=== PATIENT | male | born 1985 | race Hispanic/Latino ===

== ENCOUNTER 2020-06-21 01:57 | Emergency (ER) | payer SELFPAY ==
[2020-06-21] MEDS ORDERED: MAGNES/ALUMIN/SIMET 30ML UCUP ONE (04:31)
[2020-06-21 04:32] LABS: Absolute Lymphocytes (CBC) 2.3 K/uL (0.7-4.9); Basophils % 0.6 % (0-1.3); Hematocrit 42.4 % (39.6-49.0); Lymphocytes % 28.9 % (15.3-44.8)
[2020-06-21] MEDS ORDERED: LIDOCAINE VISCOUS 2% SOLN 15 ML UDC ONE (04:32)
[2020-06-21 04:51] LABS: Protime INR 1.04
[2020-06-21 04:55] LABS: ALT/SGPT 34 U/L (12-78); AST/SGOT 16 U/L (15-37); Albumin 3.6 g/dL (3.4-5.0); Alkaline Phosphatase 77 U/L (45-117); BUN Blood Urea Nitrogen 15 mg/dL (7-18); Bicarbonate 28 mmol/L (21-32); Bilirubin Direct < 0.1 mg/dL (0-0.2); Bilirubin Total 0.3 mg/dL (0.2-1.0); Glucose Level 90 mg/dL (74-106); Magnesium 2.2 mg/dL (1.8-2.4); NT PRO-BNP 19 pg/mL (<125); Potassium 3.6 mmol/L (3.5-5.1); Protein, Total 7.7 g/dL (6.4-8.2); Sodium Level 140 mmol/L (136-145); Troponin (Emerg Dept Use Only) < 0.02 ng/mL (0.0-0.045)
--- NOTE | 2020-06-21 05:29 | ER ---
Nurse's Notes [facility] Name: Ayo Hunt Age: 34 yrs Sex: Male : 1985 Arrival Date: 06/21/2020 Time: 01:58 Bed 15 Private MD: Diagnosis: Chest pain, unspecified;Gastro-esophageal reflux disease Presentation: 06/21 02:33 Chief complaint: Patient states: he started having chest pain around 1500 today he was bb working at home but the pain wouldn't go away so he got worried. Coronavirus screen: At this time, the client does not indicate any symptoms associated with coronavirus-19. Ebola Screen: No symptoms or risks identified at this time. Initial Sepsis Screen: Does the patient meet any 2 criteria? No. Patient's initial sepsis screen is negative. Does the patient have a suspected source of infection? No. Patient's initial sepsis screen is negative. Risk Assessment: Do you want to hurt yourself or someone else? Patient reports no desire to harm self or others. Onset of symptoms was June 20, 2020. 02:33 Method Of Arrival: Ambulatory bb 02:33 Acuity: TAMIKO 3 bb Triage Assessment: 02:37 General: Appears in no apparent distress. uncomfortable, obese, Behavior is bb cooperative, anxious. Pain: Complains of pain in chest Pain currently is 9 out of 10 on a pain scale. Neuro: Level of Consciousness is awake, alert, obeys commands, Oriented to person, place, time, situation. Cardiovascular: Reports chest pain, Capillary refill < 3 seconds Patient's skin is warm and dry. Rhythm is sinus rhythm. Respiratory: Respiratory effort is even, unlabored, Respiratory pattern is regular. GI: Reports nausea. Derm: Skin is dry, Skin is normal, Skin temperature is warm. Musculoskeletal: Circulation, motion, and sensation intact. Historical: - Allergies: 02:37 No Known Allergies; bb - Home Meds: 02:37 losartan oral oral [Active]; Aspirin Oral [Active]; bb - PMHx: 02:37 Hypertension; bb - PSHx: 02:37 abdominal surgery; bb - Immunization history:: Adult Immunizations up to date. - Social history:: Smoking status: Patient denies any tobacco usage or history of. - Family history:: not pertinent. - Hospitalizations: : No recent hospitalization is reported. Screenin:19 Abuse screen: Denies threats or abuse. Nutritional screening: No deficits noted. ea Tuberculosis screening: No symptoms or risk factors identified. Fall Risk None identified. Assessment: 04:00 General: Appears in no apparent distress. Behavior is calm, cooperative, appropriate ea for age. Pain: Complains of pain in chest Pain does not radiate. Neuro: Level of Consciousness is awake, alert, obeys commands, Oriented to person, place, time. Cardiovascular: Patient's skin is warm and dry. Respiratory: Airway is patent Respiratory effort is even, unlabored, Respiratory pattern is regular, symmetrical. Derm: Skin is pink, warm \T\ dry. 05:52 Reassessment: Patient and/or family updated on plan of care and expected duration. Pain ea level reassessed. Patient is alert, oriented x 3, equal unlabored respirations, skin warm/dry/pink. Discharge instruction given to patient verbalized the understanding of instruction. Pt left ED ambulatory tolerating well. Vital Signs: 02:33 BP 119 / 63; Pulse 77; Resp 18 S; Temp 98.4(O); Pulse Ox 99% on R/A; Weight 181.44 kg bb (R); Height 5 ft. 7 in. (170.18 cm) (R); Pain 9/10; 04:30 BP 123 / 74; Pulse 76; Resp 18; Pulse Ox 95% ; ea 05:45 BP 104 / 58; Pulse 70; Resp 18; Pulse Ox 97% ; ea 02:33 Body Mass Index 62.65 (181.44 kg, 170.18 cm) bb ED Course: 01:58 Patient arrived in ED. bp1 02:35 Triage completed. bb 02:37 Arm band placed on Patient placed in waiting room, Patient notified of wait time. EKG bb completed in triage. Results shown to MD. 03:20 Patient has correct armband on for positive identification. Bed in low position. Call ea light in reach. Side rails up X2. 03:43 Nelida Mattson, AURELIANO is Primary Nurse. ea 03:53 Nilesh Andersen MD is Attending Physician. rn 04:19 Pulse ox on. NIBP on. ea 04:20 XRAY Chest (1 view) In Process Unspecified. EDMS 05:52 No provider procedures requiring assistance completed. IV discontinued, intact, ea bleeding controlled, No redness/swelling at site. Pressure dressing applied. Administered Medications: 04:25 Drug: GI Cocktail without - (Maalox Suspension 30 ml, Lidocaine Liquid 2 % 15 ea ml) Route: PO; Outcome: 05:27 Discharge ordered by . rn 05:53 Discharged to home ambulatory, with family. taina 05:53 Condition: stable 05:53 Discharge instructions given to patient, Instructed on discharge instructions, follow up and referral plans. Demonstrated understanding of instructions, follow-up care. 05:53 Patient left the ED. ea Signatures: Dispatcher [employer] EDMS Katherine Mccall RN RN Nilesh Torres MD MD rn Antunez, Elena RN Sophia Aguilar ea
--- NOTE | 2020-06-21 05:29 | EDPHYS ---
Physician Documentation [facility] Name: Ayo Hunt Age: 34 yrs Sex: Male : 1985 Arrival Date: 06/21/2020 Time: 01:58 Bed 15 Private MD: ED Physician Nilesh Andersen HPI: 06/21 04:02 This 34 yrs old Male presents to ER via Ambulatory with complaints of Chest rn Pain. 04:02 The patient or guardian reports chest pain that is located primarily in the substernal rn area. The pain does not radiate. Associated signs and symptoms: Pertinent positives: shortness of breath, Pertinent negatives: cough, headache, lower extremity pain, lower extremity swelling, palpitations. The chest pain is described as burning, dull. Duration: The patient or guardian reports a single episode, that is now resolved. Modifying factors: The symptoms are alleviated by nothing. the symptoms are aggravated by nothing. Severity of pain: At its worst the pain was moderate in the emergency department the pain has resolved. The patient has experienced similar episodes in the past. Reports chest pain and sob that began late last night, had a bowl of cereal late, then woke up mother that his chest was hurting, states similar to gastritis pain in past, and resolved prior to my evaluation. Takes BP meds and acid medication. Currently sleeping and asymptomatic. . Historical: - Allergies: 02:37 No Known Allergies; bb - Home Meds: 02:37 losartan oral oral [Active]; Aspirin Oral [Active]; bb - PMHx: 02:37 Hypertension; bb - PSHx: 02:37 abdominal surgery; bb - Immunization history:: Adult Immunizations up to date. - Social history:: Smoking status: Patient denies any tobacco usage or history of. - Family history:: not pertinent. - Hospitalizations: : No recent hospitalization is reported. ROS: 04:02 Constitutional: Negative for fever, chills, and weight loss, Eyes: Negative for injury, rn pain, redness, and discharge, Neck: Negative for injury, pain, and swelling, Cardiovascular: Negative for palpitations, and edema, Respiratory: Negative for shortness of breath, cough, wheezing, and pleuritic chest pain, Abdomen/GI: Negative for nausea, vomiting, diarrhea, and constipation, Back: Negative for injury and pain, MS/Extremity: Negative for injury and deformity, Skin: Negative for injury, rash, and discoloration, Neuro: Negative for headache, weakness, numbness, tingling, and seizure. Exam: 04:02 Constitutional: Obese male, no acute distress, resting comfortably. Head/Face: rn Normocephalic, atraumatic. Eyes: Pupils equal round and reactive to light, extra-ocular motions intact. Lids and lashes normal. Conjunctiva and sclera are non-icteric and not injected. Cornea within normal limits. Periorbital areas with no swelling, redness, or edema. Cardiovascular: Regular rate and rhythm. No pulse deficits. Respiratory: No increased work of breathing, no retractions or nasal flaring. Abdomen/GI: soft, non-tender Skin: Warm, dry with normal turgor. Normal color with no rashes, no lesions, and no evidence of cellulitis. MS/ Extremity: Pulses equal, no cyanosis. Neurovascular intact. Full, normal range of motion. Equal circumference. Neuro: Awake and alert, GCS 15 Vital Signs: 02:33 BP 119 / 63; Pulse 77; Resp 18 S; Temp 98.4(O); Pulse Ox 99% on R/A; Weight 181.44 kg bb (R); Height 5 ft. 7 in. (170.18 cm) (R); Pain 9/10; 04:30 BP 123 / 74; Pulse 76; Resp 18; Pulse Ox 95% ; ea 05:45 BP 104 / 58; Pulse 70; Resp 18; Pulse Ox 97% ; ea 02:33 Body Mass Index 62.65 (181.44 kg, 170.18 cm) bb MDM: 03:53 Patient medically screened. rn 05:26 Differential diagnosis: acute pericarditis, anxiety, chest wall pain, costochondritis, rn esophagitis, gastritis, gastroesophageal reflux disease (GERD), pericarditis, pleurisy, pneumonia, pneumothorax. Data reviewed: vital signs, nurses notes, lab test result(s), EKG, radiologic studies, plain films, and as a result, I will discharge patient. Counseling: I had a detailed discussion with the patient and/or guardian regarding: the historical points, exam findings, and any diagnostic results supporting the discharge/admit diagnosis, lab results, radiology results, the need for outpatient follow up, to return to the emergency department if symptoms worsen or persist or if there are any questions or concerns that arise at home. Response to treatment: the patient's symptoms have resolved after treatment, the patient's condition has returned to base line, the patient is now symptom free, and as a result, I will discharge patient. Special discussion: Based on the patient's history, exam, and Dx evaluation, there is no indication for emergent intervention or inpatient Tx. It is understood by the patient/guardian that if the Sx's persist or worsen they need to return immediately for re-evaluation. I discussed with the patient/guardian in detail that at this point there is no indication for admission to the hospital. It is understood, however, that if the symptoms persist or worsen the patient needs to return immediately for re-evaluation. 06/21 03:54 Order name: Basic Metabolic Panel ea 06/21 03:54 Order name: CBC with Diff ea 06/21 03:54 Order name: LFT's 06/21 03:54 Order name: Magnesium; Complete Time: 05:17 ea 06/21 03:54 Order name: NT PRO-BNP; Complete Time: 05: ea 06/21 03:54 Order name: PT-INR; Complete Time: 05:17 ea 06/21 03:54 Order name: Troponin (emerg Dept Use Only); Complete Time: 05:17 ea 06/21 03:54 Order name: XRAY Chest (1 view) ea 06/21 03:54 Order name: EKG; Complete Time: 03:55 ea 06/21 03:54 Order name: Cardiac monitoring; Complete Time: 03:54 06/21 03:54 Order name: Basic Metabolic Panel; Complete Time: 05:17 EDNY 06/21 03:54 Order name: CBC with Automated Diff; Complete Time: 05:17 EDMS 06/21 03:54 Order name: Liver (Hepatic) Function; Complete Time: 05:17 EDMS 06/21 03:54 Order name: EKG - Nurse/Tech; Complete Time: 03:54 ea 06/21 03:54 Order name: IV Saline Lock; Complete Time: 04:25 ea 06/21 03:54 Order name: Labs collected and sent; Complete Time: 04:27 06/21 03:54 Order name: O2 Per Protocol; Complete Time: 03:54 06/21 03:54 Order name: O2 Sat Monitoring; Complete Time: 03:54 ea Administered Medications: 04:25 Drug: GI Cocktail without - (Maalox Suspension 30 ml, Lidocaine Liquid 2 % 15 ea ml) Route: PO; Disposition: 06/21/20 05:27 Discharged to Home. Impression: Chest pain, unspecified, Gastro-esophageal reflux disease. - Condition is Stable. - Discharge Instructions: Nonspecific Chest Pain, Gastroesophageal Reflux Disease, Adult. - Medication Reconciliation Form, Thank You Letter, Antibiotic Education, Prescription Opioid Use form. - Follow up: Private Physician; When: As needed; Reason: Recheck today's complaints, Re-evaluation by your physician. - Problem is new. - Symptoms have improved. Signatures: Dispatcher [employer] Katherine Jiménez RN RN bb Nieto, Roman, MD MD rn Antunez, Elena, RN RN ea Corrections: (The following items were deleted from the chart) 05:53 05:27 06/21/2020 05:27 Discharged to Home. Impression: Chest pain, unspecified; ea Gastro-esophageal reflux disease. Condition is Stable. Forms are Medication Reconciliation Form, Thank You Letter, Antibiotic Education, Prescription Opioid Use. Follow up: Private Physician; When: As needed; Reason: Recheck today's complaints, Re-evaluation by your physician. Problem is new. Symptoms have improved. rn
[2020-06-21 05:58] VITALS: TEMP 98.4
[2020-06-21 06:01] VITALS: BP 104/58; O2SAT 97
--- NOTE | 2020-06-21 07:15 | RAD REPORT ---
EXAM DESCRIPTION: RAD - Chest Single View - 06/21/2020 4:18 am CLINICAL HISTORY: CHEST PAIN COMPARISON: Portable September 2013 TECHNIQUE: AP portable chest image was obtained 06/21/2020 4:18 am . FINDINGS: Exam is significantly limited by low lung volumes and very large body habitus. Portable [place] further limits assessment. No focal lung parenchymal process. Vasculature and lung markings are accentuated by the exam limitati ons. Cardiac silhouette is enlarged in part due to the above detailed limitations. True cardiomegaly is probably present. No measurable pleural effusion and no pneumothorax. No acute bony abnormality se en. No acute aortic findings suspected. IMPRESSION: Significantly limited portable study no focal lung parenchymal process seen. Mild failure/ volume overload cannot be excluded.
--- NOTE | 2020-06-21 11:17 | EKG ---
Test Date: 2020-06-21 Test Time: 02:28:14 Torch Burner: APRIL MEASUREMENT RESULTS: Intervals: Rate: 78 CA: 140 QRSD: 88 QT: 384 QTc: 437 [place]: P: 31 CA: 140 QRS: 14 T: 12 INTERPRETIVE STATEMENTS: Normal sinus rhythm Normal ECG Compared to ECG 09/26/2013 15:02:43 No significant changes Electronically Signed On 06-21-20 11:16:42 CDT by Vinnie Wood
== END 2020-06-21 05:53 | disposition home or self-care (01) ==
LOC: ER 01:57
DX: K21.9 Gastro-esophageal reflux disease without esophagitis (principal); I10 Essential (primary) hypertension; Z79.82 Long term (current) use of aspirin
CPT/HCPCS: 36415; 71045; 80048; 80076; 83735; 83880; 84484; 85025; 85610; 93005; 99284